=== PATIENT | male | born 1990 | race Caucasian/White ===

== ENCOUNTER 2019-05-24 09:45 | Emergency (ER) | payer SELFPAY ==
[~2019-05-24] VITALS: Wt 84.1 kg
[~2019-05-24 09:45] MED LIST: AMOX1TAB10 PO; BACITUD TOP; DENIES
[2019-05-24 09:53] VITALS: BP 133/75; PULSE 80; RESP 20
[2019-05-24] MEDS ORDERED: LIDOCAINE 2% (MDV) 20 ML INJ INJ STA (10:02)
[2019-05-24] MEDS ORDERED: ACETAMINOPHEN 650MG/20.3ML CUP PO STA (10:02)
[2019-05-24] MEDS ORDERED: DIPHTH/TET/ACEL PERTUSS (ADULT) 0.5 ML VIAL IM* ONE (10:30)
[2019-05-24] MEDS ORDERED: AMOXICILLIN/CLAV 875 MG TAB PO ONE (10:30)
[2019-05-24] MEDS ORDERED: BACITRACIN/POLYMYXIN 28.35 GM OINT TOP ONE (11:30)
== END 2019-05-24 11:49 | disposition home or self-care (01) ==
LOC: FTE 09:45
DX: S01.511A Laceration without foreign body of lip, initial encounter (principal); W54.0XXA Bitten by dog, initial encounter; Y92.9 Unspecified place or not applicable; Z23 Encounter for immunization
CPT/HCPCS: 90471; 90715